=== PATIENT | female | born 1980 | race Caucasian/White ===

== ENCOUNTER 2018-12-24 21:53 | Emergency (ER) | payer SELFPAY ==
[~2018-12-24] VITALS: Ht 154.9 cm; Wt 72.4 kg
[~2018-12-24 21:53] MED LIST: OMEP20CA16 PO
[2018-12-24 21:57] VITALS: Ht 154.9 cm; Wt 72.4 kg
[2018-12-24] MEDS ORDERED: ONDANSETRON 4 MG INJ IV STA (23:42)
[2018-12-24] MEDS ORDERED: morphine 4 MG/ML VIAL IV STA (23:42)
[2018-12-25] MEDS ORDERED: SOD CHLORIDE 0.9% 1,000 ML IV ONE (01:00)
[2018-12-25] MEDS ORDERED: LIDOCAINE/MYLANTA 40 ML BTL PO ONE (02:00)
[2018-12-25] MEDS ORDERED: MAG355OR14 PO (02:14)
[2018-12-25] MEDS ORDERED: ONDA4TAB14 PO (02:17)
--- NOTE | 2018-12-25 02:25 | ERD ---
ER Documentation Chief Complaint Chief Complaint ABD PAIN WITH BLOATING X3DAYS HPI This is a 38-year-old female patient presents emergency room with complaint of abdominal pain and bloating x3 days.+ Nausea, no vomiting, decreased appetite,+ constipation. States pain travels from anterior to posterior back, pain is worse after eating. Patient has been taking her omeprazole twice daily without relief. History significant for IBS and fatty liver. ROS All systems reviewed and are negative except as per history of present illness. Medications Home Meds Active Scripts Ondansetron (Ondansetron Odt) 4 Mg Tab.rapdis, 4 MG PO Q6H PRN for NAUSEA AND/OR VOMITING, #10 TAB Prov:LEROY NORMAN TAIL END RIDER 12/25/18 Mag Hydrox/Al Hydrox/Simeth (Maalox Advanced Suspension) 355 Ml Oral.susp, 5 ML PO TID PRN for acid reflux for 10 Days, #150 ML Prov:LEROY NORMAN TAIL END RIDER 12/25/18 Reported Medications Omeprazole* (Omeprazole*) 20 Mg Capsule.dr, 20 MG PO AC BREAKFAST, CAP 11/13/14 Allergies Allergies: Coded Allergies: No Known Allergy (Unverified , 11/13/14) PMhx/Soc IBS, fatty liver History of Surgery: No Anesthesia Reaction: No Hx Neurological Disorder: No Hx Respiratory Disorders: No Hx Cardiac Disorders: No Hx Psychiatric Problems: No Hx Miscellaneous Medical Probl: No Hx Alcohol Use: No Hx Substance Use: No Hx Tobacco Use: No Smoking Status: Never smoker FmHx Family History: No diabetes, No coronary disease, No other Physical Exam Vitals Vital Signs Date Temp Pulse Resp B/P (MAP) Pulse Ox O2 O2 Flow FiO2 Time Delivery Rate 12/24/18 96.8 69 19 147/68 99 21:57 (94) Physical Exam Const: No acute distress Head: Atraumatic Eyes: Normal Conjunctiva, PERRL ENT: Normal External Ears, Nose and Mouth. Neck: Full range of motion. No meningismus. No lymphadenopathy Resp: Clear to auscultation bilaterally, no wheezing, no rales Cardio: Regular rate and rhythm, no murmurs Abd: Soft, +[place] RUQ tenderness, non distended. Normal bowel sounds. No hepato-or splenomegaly. Skin: No petechiae or rashes Back: No midline or flank tenderness, no CVT tenderness Ext: No cyanosis, or edema Neur: Awake and alert Psych: Normal Mood and Affect Result Diagram: 12/25/18 0021 12/25/18 0021 Results 24 hrs Laboratory Tests Test 12/25/18 00:21 White Blood Count 7.3 10^3/ul Red Blood Count 4.39 10^6/ul Hemoglobin 13.1 g/dl Hematocrit 39.7 % Mean Corpuscular Volume 90.4 fl Mean Corpuscular Hemoglobin 29.8 pg Mean Corpuscular Hemoglobin Concent 33.0 g/dl Red Cell Distribution Width 12.5 % Platelet Count 255 10^3/UL Mean Platelet Volume 10.5 fl Immature Granulocytes % 0.300 % Neutrophils % 43.9 % Lymphocytes % 41.8 % Monocytes % 11.4 % Eosinophils % 2.2 % Basophils % 0.4 % Nucleated Red Blood Cells % 0.0 /100WBC Immature Granulocytes # 0.020 10^3/ul Neutrophils # 3.2 10^3/ul Lymphocytes # 3.0 10^3/ul Monocytes # 0.8 10^3/ul Eosinophils # 0.2 10^3/ul Basophils # 0.0 10^3/ul Nucleated Red Blood Cells # 0.0 10^3/ul Urine Color STRAW Urine Clarity CLEAR Urine pH 6.0 [address]rine Specific [employer] [place] 1.011 Urine Ketones TRACE mg/dL Urine Nitrite NEGATIVE mg/dL Urine Bilirubin NEGATIVE mg/dL Urine Urobilinogen NEGATIVE mg/dL Urine Leukocyte Esterase NEGATIVE Moisés/ul Urine Hemoglobin NEGATIVE mg/dL Urine Glucose NEGATIVE mg/dL Urine Total Protein NEGATIVE mg/dl Urine Test NEGATIVE Sodium Level 140 mmol/L Potassium Level 4.1 mmol/L Chloride Level 101 mmol/L Carbon Dioxide Level 31 mmol/L Anion Gap 8 Blood Urea Nitrogen 10 mg/dl Creatinine 0.55 mg/dl Est Glomerular Filtrat Rate mL/min > 60 mL/min Glucose Level 93 mg/dl Calcium Level 9.8 mg/dl Total Bilirubin 0.4 mg/dl Direct Bilirubin 0.00 mg/dl Indirect Bilirubin 0.4 mg/dl Aspartate Amino Transf (AST/SGOT) 36 IU/L Alanine Aminotransferase (ALT/SGPT) 32 IU/L Alkaline Phosphatase 80 IU/L Total Protein 7.6 g/dl Albumin 4.5 g/dl Globulin 3.10 g/dl Albumin/Globulin Ratio 1.45 Lipase 50 U/L Current Medications Medications Dose Sig/Hortencia Start Time Status Last (Trade) Ordered Route PRN Stop Time Admin Dose Reason Admin Morphine 4 mg ONCE STAT 12/24/18 DC 12/25/18 Sulfate IV 23:42 00:15 (morphine) 12/24/18 23:48 Ondansetron 4 mg ONCE STAT 12/24/18 DC 12/25/18 HCl (Zofran IV 23:42 00:15 Inj) 12/24/18 23:48 Sodium 1,000 ml @ Q1H ONCE 12/25/18 DC 12/25/18 Chloride 1,000 mls/hr IV 01:00 00:56 12/25/18 01:59 40 ml ONCE ONCE 12/25/18 DC 12/25/18 Miscellaneous PO 02:00 01:48 Medication 12/25/18 02:01 (Gi Cocktail (2)) Procedures/MDM This is a 38-year-old female patient who presents emergency room with abdominal pain and bloating x3 days. ED COURSE: The patient was stable throughout ED course. I kept the patient and/or family informed of laboratory and diagnostic imaging results throughout the ED course. DIAGNOSTIC IMAGING: Read by radiologist. FINDINGS: The liver demonstrates normal echogenicity and size measuring 16.1 cm. There is no focal mass or intrahepatic biliary ductal dilatation. The portal vein is patent. The gallbladder is not distended. No gallstones are identified. There is no pericholecystic fluid or gallbladder wall thickening. The common bile duct measures 3.4 mm in maximal dimension. The visualized portions of the pancreas are unremarkable. No free fluid is identified. The right kidney is normal size and echogenicity measuring 10.5 cm. There is no focal renal mass or echogenic calculus identified. There is no obstructive uropathy. IMPRESSION: Unremarkable right upper abdominal ultrasound. PROCEDURES: None. MEDICATIONS GIVEN: Morphine, Zofran, normal saline. Patient tolerated medication well with no adverse reactions. Patient reported improvement in pain. MDM: CBC: no e/o of systemic infection or severe anemia CMP: no e/o severe acidosis, alkalosis, renal failure, diabetic ketoacidosis, liver disease Lipase: no e/o pancreatitis Urine: no e/o acute infection or hematuria, no Diagnostics: US Gallbladder- negative for cholecystitis, cholelithiasis, choledocholithiasis The patient presents with abdominal pain without definite explanation found on evaluation today. However, there are no signs of peritonitis or other life- threatening or serious etiology. The patient appears stable for discharge and has been instructed to return immediately if the symptoms worsen in any way, or in 8-12 hours if not improved for re-evaluation. The patient has been instructed to return if the symptoms worsen or change in any way. DISPOSITION: The patient has been discharge home to follow-up with community physician. Departure Diagnosis: Primary Impression: Dyspepsia Condition: Stable Patient Instructions: Diet and Lifestyle Tips for IBS, Gerd (Adult), Antacid/Gas Oral suspension Additional Instructions: Thank you very much for allowing us to participate in your care. Your health and safety is our top priority at [facility]. Call your primary care doctor TOMORROW for an appointment during the next 2-4 days and bring all the information and medications prescribed. Have prescriptions filled and follow precisely the directions on the label. If the symptoms get worse and your provider is unavailable, return to the Emergency Department immediately. You need to follow-up with your primary doctor for further evaluation and possible testing for H. pylori. You need to reestablish care with a mold unloader to evaluate your IBD. Use Zofran as needed for nausea, use Maalox as needed for acid reflux and gas. Return to the emergency room for changing or worsening of your symptoms. LEROY NORMAN NP December 25, 2018 02:25
[2018-12-25] MEDS ORDERED: DICY10CA40 PO (02:38)
[2018-12-25 02:52] VITALS: BP 118/56; PULSE 53; RESP 20
[2018-12-25] MEDS ORDERED: METOCLOPRAMIDE 10 MG INJ IV ONE (03:00)
== END 2018-12-25 03:14 | disposition home or self-care (01) ==
LOC: FTE 21:53
DX: R10.13 Epigastric pain (principal)
CPT/HCPCS: 36415; 76705; 80053; 81003; 83690; 84703; 85025; 96374; 96375; 99285; J2270; J2405; J2765; J7030

== ENCOUNTER 2019-03-03 22:43 | Emergency (ER) | payer OTHER ==
[~2019-03-03] VITALS: Ht 149.9 cm; Wt 80.0 kg
[~2019-03-03 22:43] MED LIST changes: +DICY10CA40 PO; +DOCU-144 PO; +MAG355OR14 PO; +ONDA4TAB14 PO
[2019-03-03 22:46] VITALS: Ht 149.9 cm; Wt 80.0 kg
[2019-03-04] MEDS ORDERED: KETOROLAC 30 MG INJ IM STA (00:35)
[2019-03-04] MEDS ORDERED: ONDANSETRON (ODT) 4 MG TAB ODT STA (00:57)
[2019-03-04] MEDS ORDERED: MAGNESIUM CITRATE 300 ML BTL PO ONE (01:00)
[2019-03-04] MEDS ORDERED: GLYCERIN (ADULT) SUPP PR ONE ×2 (02:00)
[2019-03-04 02:47] VITALS: BP 114/59; PULSE 70; RESP 18
--- NOTE | 2019-03-11 01:41 | ERD ---
ER Documentation Chief Complaint Chief Complaint CONSTIPATION X YESTERDAY. HPI This is a 38-year-old female with no significant past medical history presenting to the emergency department complaining of intermittent constipation since yesterday. Her last bowel movement was yesterday and it was normal. Today she feels a "tennis ball" in her rectum. She is also had diffuse mild abdominal pain. She denies any fevers, chills, nausea, vomiting, diarrhea, or other symptoms at this time. She tried no medication for relief of symptoms at home. ROS All systems reviewed and are negative except as per history of present illness. Medications Home Meds Active Scripts Docusate Sodium* (Colace*) 100 Mg Capsule, 100 MG PO TID, #30 CAP Prov:DONNA ELIZONDO PA-C 03/04/19 Dicyclomine HCl (Dicyclomine HCl) 10 Mg Capsule, 20 MG PO QID PRN for ABDOMINAL CRAMPING, #20 CAP Prov:LEROY NORMAN NP 12/25/18 Ondansetron (Ondansetron Odt) 4 Mg Tab.rapdis, 4 MG PO Q6H PRN for NAUSEA AND/OR VOMITING, #10 TAB Prov:LEROY NORMAN NP 12/25/18 Mag Hydrox/Al Hydrox/Simeth (Maalox Advanced Suspension) 355 Ml Oral.susp, 5 ML PO TID PRN for acid reflux for 10 Days, #150 ML Prov:LEROY NORMAN NP 12/25/18 Reported Medications Omeprazole* (Omeprazole*) 20 Mg Capsule.dr, 20 MG PO AC BREAKFAST, CAP 11/13/14 Allergies Allergies: Coded Allergies: No Known Allergy (Unverified , 11/13/14) PMhx/Soc History of Surgery: Yes (right hand carpal tunnel ) Anesthesia Reaction: No Hx Neurological Disorder: No Hx Respiratory Disorders: No Hx Cardiac Disorders: No Hx Psychiatric Problems: Yes (anxiety ) Hx Miscellaneous Medical Probl: No Hx Alcohol Use: No Hx Substance Use: No Hx Tobacco Use: No FmHx Family History: No diabetes Physical Exam Physical Exam Const: No acute distress Head: Atraumatic Eyes: Normal Conjunctiva ENT: Normal External Ears, Nose and Mouth. Neck: Full range of motion. No meningismus. Resp: Clear to auscultation bilaterally Cardio: Regular rate and rhythm, no murmurs Abd: Soft, non tender, non distended. Normal bowel sounds RECTAL: RN Furnace Keeper and Verbal Consent Obtained Sphincter tone is normal. No external hemorrhoids seen. No evidence of anal fissure or internal hemorrhoids. Non-tender to digital rectal palpation. No masses palpated. Skin: No petechiae or rashes Back: No midline or flank tenderness Ext: No cyanosis, or edema Neur: Awake and alert Psych: Normal Mood and Affect Results 24 hrs Laboratory Tests Test 03/04/19 00:47 POC Beta HCG, Qualitative NEGATIVE Current Medications Medications Dose Sig/Hortencia Start Time Status Last (Trade) Ordered Route PRN Stop Time Admin Dose Reason Admin Magnesium 300 ml ONCE ONCE 03/04/19 DC 03/04/19 Citrate PO 01:00 00:48 (Citroma) 03/04/19 01:01 Ketorolac 30 mg ONCE STAT 03/04/19 DC 03/04/19 Tromethamine IM 00:35 00:49 (Toradol) 03/04/19 00:36 Ondansetron 4 mg ONCE STAT 03/04/19 DC 03/04/19 HCl (Zofran ODT 00:57 01:02 Odt) 03/04/19 01:01 Glycerin 1 supp ONCE ONCE 03/04/19 DC (Glycerin LA 02:00 (Adult)) 03/04/19 02:00 Glycerin 1 supp ONCE ONCE 03/04/19 DC 03/04/19 (Glycerin LA 02:00 02:11 (Adult)) 03/04/19 02:01 Procedures/MDM This patient is a 38-year-old female presenting to the emergency department complaining of constipation since yesterday. The patient was administered glycerin suppository, magnesium citrate with improvement of her symptoms. She did have a large bowel movement while in the emergency department. Low suspicion for bowel obstruction. Low suspicion for acute surgical abdomen, seps is, or other emergent pathology. Patient will be discharged home in stable condition with prescriptions to further treat her symptoms at home. She was advised to return to the department immediately for any new or worsening or concerning symptoms. Patient is in agreement with the diagnosis, plan company for follow-up, return precautions. Departure Diagnosis: Primary Impression: Constipation Condition: Fair Patient Instructions: Constipation (Adult) Additional Instructions: Call your primary care doctor TOMORROW for an appointment during the next 1-2 days.See the doctor sooner or return here if your condition worsens before your appointment time. DONNA ELIZONDO PA-C Mar 11, 2019 01:41
== END 2019-03-04 02:48 | disposition home or self-care (01) ==
LOC: FTE 22:43
DX: K59.00 Constipation, unspecified (principal)
CPT/HCPCS: 81025; 96372; 99284; J1885